=== PATIENT | male | born 1960 | race Caucasian/White ===

== ENCOUNTER 2024-10-11 10:02 | Emergency (ER) | payer SELFPAY ==
[~2024-10-11] VITALS: Ht 172.7 cm; Wt 74.8 kg
[2024-10-11 10:36] VITALS: BP 141/87; TEMP 98; O2SAT 99
== END 2024-10-11 10:36 | disposition home or self-care (01) ==
LOC: ER 10:02
DX: S00.83XA Contusion of other part of head, initial encounter (principal); W18.39XA Other fall on same level, initial encounter; Y93.89 Activity, other specified; Y92.89 Other specified places as the place of occurrence of the external cause; Y99.8 Other external cause status